=== PATIENT | female | born 1995 | race Hispanic/Latino ===

== ENCOUNTER 2019-01-29 17:12 | Emergency (ER) | payer OTHER ==
[~2019-01-29] VITALS: Ht 160 cm; Wt 54.5 kg
[2019-01-29] MEDS ORDERED: IBUPROFEN 600 MG TAB PO ONE (17:30)
[2019-01-29 18:39] VITALS: BP 121/67
--- NOTE | 2019-01-30 10:01 | REP ---
Right foot four views : There is no fracture or dislocation. Mineralization and joint spaces are normal. There are no calcifications or foreign bodies. Impression: Negative right foot . Electronically Signed by Gabriel Hodge MD 01/30/2019 09:53 A
== END 2019-01-29 18:41 | disposition home or self-care (01) ==
LOC: M ED 17:12
DX: S93.611A Sprain of tarsal ligament of right foot, initial encounter (principal); X58.XXXA Exposure to other specified factors, initial encounter; Y92.59 Other trade areas as the place of occurrence of the external cause; Y93.02 Activity, running

== ENCOUNTER 2020-07-11 20:40 | Emergency (ER) | payer OTHER ==
[~2020-07-11] VITALS: Ht 157.5 cm; Wt 58.0 kg
[2020-07-11 23:00] LABS: BASO # 0.1 10^3/uL (0.0-0.2); BASO % 0.5 % (0.0-1.0); EOS # 0.3 10^3/uL (0.0-0.5); EOS % 2.8 % (0.0-3.0); HEMATOCRIT 35.8 % (36.0-47.0); HEMOGLOBIN 12.1 g/dl (12.0-15.5); MEAN CORPUSCULAR HEMOGLOBIN 30.3 pg (27.0-33.0); MEAN CORPUSCULAR HGB CONC 33.8 g/dl (32.0-36.5); MEAN CORPUSCULAR VOLUME 89.5 fl (80.0-96.0); MONO # 0.7 10^3/uL (0.0-0.8); NEUTROPHILS # 6.5 10^3/uL (1.5-8.5); NEUTROPHILS % 61.2 % (36.0-66.0); PLATELET COUNT, AUTOMATED 239 10^3/uL (150-450); WHITE BLOOD COUNT 10.6 10^3/uL (4.0-10.0)
[2020-07-11 23:20] LABS: ALBUMIN 3.7 GM/DL (3.2-5.2); ALT/SGPT 23 U/L (12-78); BILIRUBIN,TOTAL 0.2 MG/DL (0.2-1.0); BLOOD UREA NITROGEN 15 MG/DL (7-18); CARBON DIOXIDE LEVEL 27 MEQ/L (21-32); CHLORIDE LEVEL 107 MEQ/L (98-107); CREATININE FOR GFR 0.91 MG/DL (0.55-1.30); GLOMERULAR FILTRATION RATE > 60.0 (>60); GLUCOSE, FASTING 99 MG/DL (70-100); POTASSIUM SERUM 3.2 MEQ/L (3.5-5.1); SODIUM LEVEL 138 MEQ/L (136-145); TOTAL PROTEIN 7.6 GM/DL (6.4-8.2)
[2020-07-12 00:10] VITALS: BP 128/59
--- NOTE | 2020-07-12 11:39 | REPVR ---
PROCEDURE INFORMATION: Exam: US Pelvis Limited, Transabdominal Exam date and time: 07/11/2020 9:18 PM Age: 25 years old Clinical indication: Mass, lump, or swelling; Other: RT groin; Additional info: Right groin pain TECHNIQUE: Imaging protocol: Real-time transabdominal pelvic ultrasound with image documentation. Limited exam. COMPARISON: No relevant prior studies available. FINDINGS: Soft tissues: Imaging of the right inguinal region demonstrates a septated cystic structure measuring 3.3 x 1.8 x 2.3 cm. There are no solid components or vascularity demonstrated. IMPRESSION: Imaging of the right inguinal region demonstrates a septated cystic structure measuring 3.3 x 1.8 x 2.3 cm. There are no solid components or vascularity demonstrated. Finding may represent an epidermal cyst or a cyst of the canal of [place]. Electronically signed by: Yomi Rg On 07/11/2020 22:13:10 PM
== END 2020-07-12 00:11 | disposition home or self-care (01) ==
LOC: M ED 20:40
DX: L72.0 Epidermal cyst (principal)